=== PATIENT | female | born 1995 | race Caucasian/White ===

== ENCOUNTER 2020-09-03 20:44 | Emergency (ER) | payer MEDICAID, SELFPAY ==
--- NOTE | 2020-09-03 20:52 | XR_ITS ---
PROCEDURE: XR FOOT RT MIN 3V CLINICAL INDICATION: PAIN Pain in the right midfoot radiating into the heel COMPARISON: No exams were available for comparison FINDINGS: There is an old fracture versus accessory ossification center at the base of the 5th metatarsal. No other significant anomalies are evident. The joint spaces are well-preserved. No significant degenerative/arthritic changes. No erosive changes evident. Other findings:None. 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
--- NOTE | 2020-09-03 20:56 | HMH.EDUTC ---
[facility] Disposition Clinical Impression: Right foot pain Disposition: Home, Self-Care Condition on Discharge: Good Instructions: DI for Foot Pain Additional Instructions: Rest the extremity, , Elevate the extremity as tolerated while you are resting. Take ibuprofen for pain. I sent in a prescription to your pharmacy. Follow up with Dr. Oliveira (Podiatry). I put in a referral but you need to call his office and schedule an appointment. Follow up with your regular doctor. GO TO THE ER FOR ANY WORSENING SYMPTOMS Prescriptions: Ibuprofen [Ibuprofen 600mg Tablet] 600 mg PO Q6HP PRN #30 tab PRN Reason: Mild Pain Transmission Status: Pending to [id number] Referrals: PCP,Stella [Primary Care Provider] - Alexia Oliveira DPM [Staff Physician] - Forms: Work/School Release Time of Disposition: 21:05 Medical Decision Making - Medical Records Medical records reviewed: No: I reviewed the patient's medical records. - Tristan Inquiry Pt receiving controlled substance: No Orders (Tests/Meds): ORDERS Category Date Time Status Foot XR right minimum 3 views [XR foot RT min 3V] Stat Exams 09/03/20 20:52 Ordered - Radiology Data #1 Image(s): Foot/Toes Image Reviewed: Yes I reviewed the patient's radiology image Preliminary Findings: No Fracture Seen [facility] HPI - General Stated complaint: r foot pain Time Seen by Provider: 09/03/20 20:56 - History of Present Illness Provider Complaint: She states that over the past 2 to 3 months she has been having right foot pain. 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 She denies any injury. She is not diabetic. - Related Data Previous Rx's Medication Instructions Recorded Ibuprofen [Ibuprofen 600mg 600 mg PO Q6HP PRN #30 tab 09/03/20 Tablet] Allergies Allergy/AdvReac Type Severity Reaction Status Date / Time No Known Allergies Allergy Verified 06/01/19 12:46 [facility] History - Hepatitis A Screen Attestation statement:: This patient has been screened for Hepatitis A risk factors. I have reviewed the patient's past medical history: Yes Medical History: Denies:: Cancer, Diabetes Mellitus Type 1, Diabetes Mellitus Type 2 (gestational only), MRSA Amputation: No Fractures: No - Social History Alcohol Intake: never Alcohol Intake Frequency:: a few times a month Occupational Status: employed Housing: house ROS Obtained: Yes All systems reviewed & no additional complaints - Constitutional Constitutional: Denies chills, Denies fever(s) - Musculoskeletal Musculoskeletal: Reports as per HPI - Integumentary/Breasts Skin/Breast: Denies redness, Denies rash, Denies wounds - Neurologic Neurologic: Denies tingling/numbness/burning sensations Physical Exam - General General appearance: alert, in no apparent distress - Head Head exam: atraumatic, normocephalic, normal inspection - Eye Eye exam: Present: normal appearance, PERRL, EOMI - ENT ENT exam: Present: normal exam, normal oropharynx, mucous membranes moist, TM's normal bilaterally, normal external ear exam - Neck Neck exam: Present: normal inspection, full ROM, trachea midline. Absent: meningismus, lymphadenopathy - Chest Chest inspection: Present: normal inspection, symmetric chest wall rise. Absent: tenderness - Respiratory Respiratory exam: Present: normal lung sounds bilaterally. Absent: respiratory distress - Cardiovascular Cardiovascular exam: Present: regular rate, normal rhythm. Absent: JVD - Abdominal Exam Abdominal exam: Present: soft, normal bowel sounds. Absent: distention, tenderness, guarding - Extremities Exam Extremities exam: Present: normal capillary refill. Absent: calf tenderness - Expanded Lower Extremity Exam Right Hip/Pelvis exam: Present: normal inspection Upper leg exam: Present: normal inspection Knee exam: Present: normal inspection Lower leg exam: Present: normal inspe
[2020-09-03 20:57] VITALS: BP 155/81; PULSE 100; RESP 14; TEMP 37.1; O2SAT 100; BMI 35.2
[2020-09-03 21:07] VITALS: BP 155/81; PULSE 100; RESP 14; TEMP 37.1; O2SAT 100
== END 2020-09-03 21:10 | disposition home or self-care (01) ==
PROVIDERS: Emergency Provider Nurse Practitioner Family
DX: M79.671 Pain in right foot (principal)
CPT/HCPCS: 73630; 99201

== ENCOUNTER 2022-02-14 11:47 | Emergency (ER) | payer OTHER, SELFPAY ==
[2022-02-14] VITALS (10 sets, daily range): BP systolic 98–134; BP diastolic 48–79; PULSE 84–102; RESP 17–18; TEMP 36.8–37.1; O2SAT 99–100; BMI 37.8
[2022-02-14 12:10] LABS: Microscopic, Urine URINE MICROSCOPIC (MICROSCOPIC)
[2022-02-14 12:13] LABS: Appearance,Urine CLEAR (Clear); Bilirubin,Urine Negative (Negative); Blood, Urine TRACE-I (Negative); Color,Urine YELLOW (Yellow); Glucose,Urine (UA) Negative (Negative); Ketones,Urine Negative (Negative); Leukocyte Esterase,Urine 1+ (Negative); Nitrate,Urine Negative (Negative); PH,Urine 7.5 (5.0-8.5); Protein,Urine Negative (Negative); Specific Gravity, Urine 1.015 (1.005-1.030)
[2022-02-14 12:15] LABS: Urine Pregnancy, HCG Qual. Negative (Negative)
--- NOTE | 2022-02-14 12:25 | CT_ITS ---
PROCEDURE INFORMATION: Exam: CT Abdomen And Pelvis Without Contrast Exam date and time: 02/14/2022 2:23 PM Age: 26 years old Clinical indication: Nausea; Additional info: Abd pain- sudden onset lower abd pain- had previous ablation and was told had an ovarian cyst -- TECHNIQUE: Imaging protocol: Computed tomography of the abdomen and pelvis without contrast. Radiation optimization: All CT scans at this facility use at least one of these dose optimization techniques: automated exposure control; mA and/or kV adjustment per patient size (includes targeted exams where dose is matched to clinical indication); or iterative reconstruction. Other contrast: Oral, gastrograffin, 30ml; COMPARISON: ABDPELW/O CT ABD PELVIS W/O CONTRAST 04/10/2016 1:51 AM FINDINGS: Liver: Mild changes of hepatic steatosis. Gallbladder and bile ducts: Normal. No calcified stones. No ductal dilation. Pancreas: Normal. No ductal dilation. Spleen: Normal. No splenomegaly. Adrenal glands: Normal. No mass. Kidneys and ureters: Normal. No hydronephrosis. Stomach and bowel: Unremarkable. No obstruction. No mucosal thickening. Appendix: No evidence of appendicitis. Intraperitoneal space: Unremarkable. No free air. No significant fluid collection. Vasculature: Unremarkable. No abdominal aortic aneurysm. Lymph nodes: Unremarkable. No enlarged lymph nodes. Urinary bladder: Unremarkable as visualized. Reproductive: Anteverted uterus. Demonstration of 3.3 cm left ovarian cyst. The multiple cystic collections in the region of the lower uterine segment. Findings most likely correspond to nabothian cysts. Findings new. Bones/joints: Unremarkable. No acute fracture. Soft tissues: Unremarkable. Other findings: Evidence of previous granulomatous disease IMPRESSION: 1. Demonstration of 3.3 cm left ovarian cyst. 2. The multiple cystic collections in the region of the lower uterine segment. Findings most likely correspond to nabothian cysts. These are new compared with the previous study.
[2022-02-14 12:27] LABS: Bacteria,Urine Trace /lpf; RBC,Urine Occasional #/hpf (0-3); Squamous Epithelial Cell,Urine Occasional #/hpf (0-5)
--- NOTE | 2022-02-14 12:29 | HMH.EDGENADL ---
ED Disposition Clinical Impression: Pelvic pain Ovarian cyst Qualifiers: Laterality: left Qualified Code(s): N83.202 - Unspecified ovarian cyst, left side Disposition: Home, Self-Care Condition on Discharge: Good Instructions: DI for Acute Abdominal Pain, DI for Ovarian Cyst Additional Instructions: Follow-up with your [facility] for ovarian cyst as scheduled. Toradol as needed for pain. Prescriptions: Ketorolac Tromethamine [Toradol 10mg tablet] 10 mg PO Q6HP PRN #10 tab PRN Reason: Moderate Pain Transmission Status: Pending to [facility] #[id number] Referrals: Maria Esther Kimball APRN [Primary Care Provider] - - Critical Care Critical Care Time: No Attestation: On 02/14/22, the high probability of a clinically significant, sudden or life threatening deterioration of the following system(s) required my full and direct attention, intervention and personal management. The time I documented below is in addition to time spent performing reported procedures but includes the following listed in this critical care notation. Medical Decision Making - Tristan Inquiry Pt receiving controlled substance: No Vital Signs: 02/14/22 12:06 02/14/22 12:42 02/14/22 13:01 Temperature 98.7 F Temperature Source Oral Pulse Rate 99 H 93 H Pulse Rate [Left Radial] 94 H Respiratory Rate 17 Blood Pressure 121/79 118/50 L Blood Pressure [Right Arm] 134/61 Blood Pressure Mean 92 73 Blood Pressure Mean [Right Arm] 85 02 Sat by Pulse Oximetry 100 100 100 Oxygen Delivery Method Room Air 02/14/22 13:26 02/14/22 13:31 02/14/22 13:44 Temperature Temperature Source Pulse Rate 85 88 99 H Pulse Rate [Left Radial] Respiratory Rate Blood Pressure 128/57 L 124/49 L 98/48 L Blood Pressure [Right Arm] Blood Pressure Mean 76 74 65 Blood Pressure Mean [Right Arm] 02 Sat by Pulse Oximetry 99 100 100 Oxygen Delivery Method 02/14/22 14:00 02/14/22 15:24 02/14/22 15:30 Temperature Temperature Source Pulse Rate 102 H 102 H 87 Pulse Rate [Left Radial] Respiratory Rate Blood Pressure 110/50 L 113/63 104/48 L Blood Pressure [Right Arm] Blood Pressure Mean 70 78 67 Blood Pressure Mean [Right Arm] 02 Sat by Pulse Oximetry 100 100 100 Oxygen Delivery Method - Lab Data Lab Results 02/14/22 11:55: Urine Color Yellow, Urine Appearance Clear, Urine pH 7.5, Ur Specific [place] 1.015, Urine Protein Negative, Urine Glucose (UA) Negative, Urine Ketones Negative, Urine Blood Trace-i, Urine Nitrate Negative, Urine Bilirubin Negative, Urine Urobilinogen 1.0, Ur Leukocyte Esterase 1+ A, Urine RBC Occasional, Urine WBC 3-5, Ur Squamous Epith Cells Occasional, Urine Bacteria Trace 02/14/22 11:55: Urine HCG, Qual Negative 02/14/22 12:36: WBC 14.9 H, RBC 4.72, Hgb 14.3, Hct 41.4, MCV 87.6, MCH 30.2, MCHC 34.5, RDW 14.3, Plt Count 274, MPV 8.1, Neut % (Auto) 86.2 H, Lymph % (Auto) 9.0 L, [place] % (Auto) 2.6, Eos % (Auto) 1.3, Baso % (Auto) 0.9, Neut # (Auto) 12.8 H, Lymph # (Auto) 1.3, [place] # (Auto) 0.4, Eos # (Auto) 0.2, Baso # (Auto) 0.1, Total Counted 100, Neutrophils % (Manual) 86 H, Lymphocytes % (Manual) 13, Monocytes % (Manual) 1 L, Platelet Estimate Normal, RBC Morphology Normal 02/14/22 12:36: Sodium 137, Potassium 3.8, Chloride 105, Carbon Dioxide 27, Anion Gap 8.8, BUN 10, Creatinine 0.70, Estimated Creat Clear 168, Estimated GFR 100, Est GFR ( Amer) 121, Glucose 113 H, Calcium 8.9, Total Bilirubin 0.5, AST 39 H, ALT 35, Alkaline Phosphatase 94, Total Protein 7.3, Albumin 4.2, Globulin 3.1, Albumin/Globulin Ratio 1.4, Lipase 62 Result diagrams: 02/14/22 12:36 02/14/22 12:36 Orders (Tests/Meds): ED MEDICATIONS Discontinued Medications Generic Name Dose Route Start Last Admin Trade Name Freq PRN Reason Stop Dose Admin Morphine Sulfate 4 mg 02/14/22 13:15 02/14/22 13:20 Morphine 4mg/Ml Syringe IV 02/14/22 13:16 4 mg ONCE ONE Administration Onmatthewe
--- NOTE | 2022-02-14 12:31 | HMH.ITSTN ---
called and spoke to [facility]-- Dr. Topete was not available to consult on IV contrast-- we are currently on IV contrast shortage-- I need to clarify if patient needs oral contrast only or if he truly wants the IV contrast- they are suppose to check with him and call me back
[2022-02-14 12:46] LABS: Basophils # 0.1 K/mm3 (0-0.2); Basophils % 0.9 % (0.1-2.0); Eosinophils # 0.2 K/mm3 (0.0-0.4); Eosinophils % 1.3 % (0.1-12.0); Hematocrit 41.4 % (37.0-47.0); Hemoglobin 14.3 g/dL (12.2-16.2); Lymphocytes # 1.3 K/mm3 (0.7-4.5); Mean Corpuscular HGB Conc 34.5 g/dL (31.8-35.4); Mean Corpuscular Hemoglobin 30.2 pg (27.0-31.2); Mean Corpuscular Volume 87.6 fl (81-99); Mean Platelet Volume 8.1 fl (7.4-10.4); Monocytes # 0.4 K/mm3 (0.1-1.0); Monocytes % 2.6 % (1.7-9.3); Neutrophils # 12.8 K/mm3 (1.8-7.8); Neutrophils % 86.2 % (37.0-80.0); Platelet Count 274 K/mm3 (142-424); Red Blood Count 4.72 M/mm3 (4.20-5.40); Red Cell Distribution Width 14.3 % (11.5-17.5); White Blood Count 14.9 K/mm3 (4.8-10.8)
[2022-02-14 12:50] LABS: MANUAL DIFFERENTIAL MANUAL DIFFERENTIAL (MANUAL DIFF)
[2022-02-14 12:55] LABS: Chloride 105 mmol/L (98-107); Potassium 3.8 mmoL/L (3.5-5.1); Sodium 137 mmol/L (136-145)
[2022-02-14 12:57] LABS: Alanine Aminotransferase 35 U/L (12-78); Alkaline Phosphatase 94 U/L (38-126); Aspartate Amino Transferase 39 U/L (14-36); Bilirubin,Total 0.5 mg/dl (0.2-1.3); Blood Urea Nitrogen 10 mg/dl (7-17); Creatinine Clearance Estimated 168 mL/min (50-200); Estimated Glomerular Filt Rate 100 ml/min (>60); GFR (African American) 121 ML/MIN (>60)
[2022-02-14 12:58] LABS: Albumin Level 4.2 g/dl (3.5-5.0); Albumin/Globulin Ratio 1.4 (1.1-1.8); Anion Gap 8.8 mEq/L (5-15); Calcium 8.9 mg/dl (8.4-10.2); Carbon Dioxide 27 mmol/L (22.0-30.0); Globulin 3.1 g/dL (1.3-3.2); Glucose 113 mg/dl (74-100); Lipase 62 U/L (23-300); Total Protein,Serum 7.3 g/dl (6.3-8.2)
--- NOTE | 2022-02-14 13:06 | PC.NURSE ---
notified RAD Pt was finished with oral contrast 1302
--- NOTE | 2022-02-14 13:52 | PC.NURSE ---
pt resting in bed drowsy after meds
--- NOTE | 2022-02-14 15:18 | US_ITS ---
PROCEDURE INFORMATION: Exam: US Pelvis, Transvaginal Exam date and time: 02/14/2022 4:00 PM Age: 26 years old Clinical indication: Abnormal findings; Abnormal imaging test; Prior surgery; Surgery date: 1-6 months; Surgery type: Ablation x 2 mos; Additional info: Pelvic pain, ovarian cyst, R/O torsion TECHNIQUE: Imaging protocol: Real-time transvaginal pelvic ultrasound with image documentation. Transvaginal imaging was used for better evaluation of the endometrium, adnexa, and/or cervix. COMPARISON: CT ABDOMEN PELVIS WO CON 02/14/2022 2:23 PM FINDINGS: Uterus: The uterus measured 10.3 cm in length by 4.8 cm in AP dimensions by 5.8 cm transversely. The endometrial complex measured 1.2 cm patient's LMP 02/13/2022. Cervix: Multiple nabothian cysts are demonstrated in the region of the lower uterine segment. This corresponds to findings on the CT examination. Right ovary/adnexa: Right ovary measured 2.3 cm in length by 2 cm in AP dimensions by 2.4 cm in transverse dimensions. Left ovary/adnexa: The left ovary measured 4.3 cm in length by 4 cm in AP dimensions by 4.3 cm transversely. There is a 3.3 cm left ovarian cyst. No abnormal associated vascularity is demonstrated. This correlates with findings on the CT examination earlier on this date. Intraperitoneal space: No free fluid. IMPRESSION: 1. 3.3 cm left ovarian cyst. Findings correlate with CT findings earlier on this date. 2. Multiple nabothian cyst demonstrated in the region of the lower uterine segment. 3. Prominence of the endometrial complex. Clinically correlate
--- NOTE | 2022-02-14 15:19 | PC.NURSE ---
notified radiology of u/s order.
[2022-02-14 15:23] LABS: Lymphocytes % 13 % (10-50); Monocytes % 1 % (2-9); Neutrophils % 86 % (42-76); Platelet Estimate Normal; RBC Morphology Normal; Total Cells Counted 100
--- NOTE | 2022-02-14 15:32 | HMH.ITSTN ---
called in Tank Worker Fidelia at 3:30pm - she will be in
--- NOTE | 2022-02-14 16:47 | PC.NURSE ---
pt in room resting in bed
[2022-02-16 22:37] LABS: Neisseria gonorrhoeae, NAA Negative (Negative)
== END 2022-02-14 17:16 | disposition home or self-care (01) ==
PROVIDERS: Emergency Provider Emergency Medicine; PCP Nurse Practitioner Family
DX: N83.202 Unspecified ovarian cyst, left side (principal); Z88.8 Allergy status to other drugs, medicaments and biological substances
CPT/HCPCS: 74176; 76830; 80053; 81001; 81025; 83690; 85007; 85025; 87086; 87491; 87591; 96374; 96375; 99284; J2405

== ENCOUNTER 2023-08-15 18:54 | Emergency (ER) | payer OTHER, SELFPAY ==
--- OUTSIDE RECORDS SUMMARY | 2023-08-15 18:58 | XMS_ITS | Patient Health Record ---
Author Name Unknown Organization [facility] Address [address] [place] [address] Care Team Providers Care Iron Miner Name Role Phone Maria Esther Kimball Primary Care Provider [phone] MARIA ESTHER KIMBALL Unavailable Unavaila ble ALLERGIES No Known Allergies REASON FOR REFERRAL No Information MEDICATIONS Medication SIG (Take, Route, Frequency, Duration) Notes Start Date End Date Status Medrol 4 mg as directed orally a s directed for 6 days 02/11/2022 Active cetirizine 10 mg 1 tab(s) orally once a day for 30 days 02/04/2022 Active triamcinolone topical 0.1% 1 dequan applied topically 3 times a day as needed for hives for 7 day(s) 02/04/2022 Active SOCIAL HISTORY Tobacco Use: Social History Observation Description Date Details (start date - stop date) Never Smoker NA - NA Sex Assigned At : Social History Observation Description Sex Assigned At Unknown Smoking: Question Answer Notes Are you a: nonsmoker PROBLEMS Problem Type ICD Code Onset Dates Problem Status W/U Status Risk SNOMED Code Notes Problem Family history of diabetes mellitus (Z83.3) Active confirmed 433935068 Problem BMI 38.0-38.9,adul t (Z68.38) Active confirmed [id number]
--- OUTSIDE RECORDS SUMMARY | 2023-08-15 18:58 | XMS_ITS | Patient Health Record ---
Author Name Unknown Organization [facility] [place] Address [address] [place] [address] Care Team Providers Care Licensed Guide Name Role Phone Lorelei Burk Unavailable [phone] Allergies No Known Allergies Reason For Referral No Information Medications Medication SIG (Take, Route, Fr equency, Duration) Notes Start Date End Date Status Ibuprofen 600 MG One tablet po every every 6 hours for 5 days 01/01/2022 Not-Taking Lovenox 40 MG/0.4ML 0.4 ml Subcutaneous Once a day for 30 day(s) 01/01/2022 Active Percocet 5-325 MG one tablet po every 4 hours for 3 days 01/01/2022 Not-Taking Social History Alcohol Screen Question Answer Notes Did you have a drink containing alcohol in the p ast year? No Points 0 Interpretation Negative Problems Problem Type SNOMED Code ICD Code Onset Dates Problem Status W/U Status Risk Notes Problem [id number] Menorrhagia with regular cycle (N92.0) Active confirmed Problem [id number] Menorrhagia with irregular cycle (N92.1) Active confirmed Problem Gynecological examination abnormal ([id number] ) *Line Technician exam with abnormal finding (Code also - abnormal finding(s) (Z01.411) 021 Active confirmed
[2023-08-15 20:25] VITALS: BP 139/71; PULSE 83; RESP 17; TEMP 36.7; O2SAT 98; BMI 31.3
[2023-08-15 20:48] LABS: Apearance,Urine Cloudy (Clear); Blood, Urine 3+ (Negative); Color,Urine Red (Yellow); Glucose,Urine (UA) 100 (Negative); Ketones,Urine Negative (Negative); Protein,Urine 1+ (Negative)
[2023-08-15 20:49] VITALS: BP 139/71; PULSE 83; RESP 17; TEMP 36.7; O2SAT 98
[2023-08-15 20:49] LABS: Bilirubin,Urine 1+ (Negative); UTC Leukocyte Esterase,Urine 3+ (Negative); UTC Nitrate,Urine Positive (Negative); Urobilinogen,Urine 2 EU/dl (0.2)
--- NOTE | 2023-08-15 20:51 | EXP.UTC ---
Discharge Plan Disposition Patient Disposition: Home, Self-Care Condition: Good Prescriptions Prescriptions: New cefdinir 300 mg capsule 300 mg PO BID 10 Days Qty: 20 0RF phenazopyridine [Pyridium] 200 mg tablet 200 mg PO Q8H 2 Days Qty: 6 0RF No Action ketorolac 10 MG tablet 10 mg PO Q6HP PRN (Reason: Moderate Pain) Qty: 10 0RF Referrals Follow up/Referrals: Maria Esther Kimball APRN [Primary Care Provider] - See instructions Activity Restrictions/Add. Instructions Additional Instructions/Restrictions: *Increase fluids. Water not Soda or Tea *Start antibiotic immediately and be sure to take as ordered for the FULL length of time although you should start to see improvement over the next 48 hours *Pyridium as needed Remember this medication will turn your urine . This is normal but it will stain what ever it gets on *You should not use Pyridium for more than 48 hours. If so , follow up with your primary physician to review urine culture and ensure that antibiotic is adequate for infection *Be SURE to follow up anytime for new or worsening symptoms with your family doctor. AND in 48 hours for urine culture results with your family doctor, if you do not have a doctor then you may call back to the [facility] for urine culture results and further treatment. We do recommend that you choose and establish care with a Primary Care Physician. ?AND follow up with them ?in 10-14 days to repeat UA to ensure infection is resolved and blood no longer present *Be sure to let your PCP know that we sent urine cultures from the [facility] so they can follow up to ensure that you area the on the correct antibiotic Call your doctor office and make appointment for 48 hours (2 days from today) ?to follow up and get the results of your urine culture and further treatment Follow up immediately if any worsening of symptoms Clinical Impressions Clinical Impression: UTI (urinary tract infection) Qualifiers: Urinary tract infection type: site unspecified Hematuria presence: with hematuria Qualified Code(s): N39.0 - Urinary tract infection, site not specified Instructions Patient Instructions: Urinary Tract Infection, DI for Urinary Tract Infection (UTI), Cefdinir Discharge ED Provider: Benita Pendleton [facility] HPI General Stated complaint: painful urination, blood in urine Mode of Arrival: Ambulatory Source of Information: Patient Limitations: No Limitations Time Seen by Provider: 08/15/23 20:51 Description of Symptoms (Recalled from Triage Doc. by RN): PATIENT C/O PAIN AND DISCOMFORT WITH URINATION AND BLOOD IN URINE SINCE YESTERDAY HEENT Symptoms (Recalled from RN notes): No Resp Symptoms (Recalled from RN notes): No Skin Symptoms (Recalled from RN notes): No MS Symptoms (Recalled from RN notes): No Functional Status (Recalled from RN notes): WNL History of Present Illness Provider Complaint: Patient states that yesterday she started with burning and discomfort with urination so she started taking AZO States that this morning she noticed some blood in her urine and has continued to have burning, urgency and frequency and pressure like feeling in her lower abdomen States that she hasnt had any fever body aches or chills and feels like she is going all the time Denies hx of kidney stones and denies lower back pain or flank pain Related Data Previous Rx's Medication Instructions Recorded ketorolac 10 mg tablet 10 mg PO Q6HP PRN Moderate Pain 02/14/22 #10 tabs cefdinir 300 mg capsule 300 mg PO BID 10 days #20 caps 08/15/23 phenazopyridine 200 mg tablet 200 mg PO Q8H pain 2 days #6 tabs 08/15/23 (Pyridium) Allergies Allergy/AdvReac Type Severity Reaction Status Date / Time enoxaparin [From Lovenox] Allergy Verified 02/14/22 12:21 Worker's Comp Is this a Worker's Comp case?: No [facility] Disclaimer: The information contained in this section may have been updated after the patient was seen, as this information can be updated b
== END 2023-08-15 21:18 | disposition home or self-care (01) ==
PROVIDERS: Emergency Provider Nurse Practitioner; PCP Nurse Practitioner Family
DX: N39.0 Urinary tract infection, site not specified (principal); B95.7 Other staphylococcus as the cause of diseases classified elsewhere; R31.9 Hematuria, unspecified; R10.30 Lower abdominal pain, unspecified
CPT/HCPCS: 81003; 87086; 96372; 99212; 99214; G0463; J0696

== ENCOUNTER 2024-11-21 16:16 | Emergency (ER) | payer OTHER, SELFPAY ==
[2024-11-21 16:19] VITALS: BP 134/81; PULSE 82; RESP 16; TEMP 36.7; O2SAT 100; BMI 35.2
--- NOTE | 2024-11-21 16:48 | CA_ITS ---
FINAL REPORT TECHNIQUE: Compression delgadillo scale and Doppler evaluation CLINICAL HISTORY: left foot and ankle pain, denies trauma. History of DVT and PE's post 8 years ago. Not currently on blood thinners. FINDINGS: Femoral and popliteal veins show normal compressibility and flow. Visualized portion of the calf veins are patent by Doppler exam. IMPRESSION: No evidence of left lower extremity deep venous thrombosis Reviewed, Interpreted and Dictated by Bakari Heredia MD Transcribed by Flori Mccullough Authenticated and [facility]
--- NOTE | 2024-11-21 16:50 | XR_ITS ---
PROCEDURE INFORMATION: Exam: XR Left Foot Exam date and time: 11/21/2024 5:01 PM Age: 29 years old Clinical indication: Pain; Foot; Left; Additional info: Left foot pain, swelling TECHNIQUE: Imaging protocol: Radiologic exam of the left foot. Views: 3 or more views. COMPARISON: CR XR FOOT LT MIN 3V 11/21/2024 5:01 PM FINDINGS: Bones/joints: Ununited fracture at the base of the 5th metatarsal noted. No acute fracture identified. No other significant bone or joint abnormality. Small heel spurs. Soft tissues: Normal. 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 No acute abnormality.
--- NOTE | 2024-11-21 16:51 | XR_ITS ---
PROCEDURE INFORMATION: Exam: XR Left Ankle Exam date and time: 11/21/2024 5:03 PM Age: 29 years old Clinical indication: Pain; Ankle; Left; Additional info: Foot pain ankle pain and swelling TECHNIQUE: Imaging protocol: Radiologic exam of the left ankle. Views: 1 or 2 views. COMPARISON: CR XR FOOT LT MIN 3V 11/21/2024 5:01 PM FINDINGS: Bones/joints: Normal. No acute fracture identified. Soft tissues: Normal. IMPRESSION: No acute findings.
--- NOTE | 2024-11-21 16:52 | PC.NURSE ---
PT IN A GOWN FOR DOPPLER
--- NOTE | 2024-11-21 16:58 | HMH.EDGENADL ---
Discharge Plan Disposition Patient Disposition: Home, Self-Care Condition: Good Prescriptions Prescriptions: No Action ketorolac 10 MG tablet 10 mg PO Q6HP PRN (Reason: Moderate Pain) Qty: 10 0RF cefdinir 300 mg capsule 300 mg PO BID 10 Days Qty: 20 0RF phenazopyridine [Pyridium] 200 mg tablet 200 mg PO Q8H 2 Days Qty: 6 0RF Referrals Follow up/Referrals: Maria Esther Kimball APRN [Primary Care Provider] - See instructions Alexia Oliveira DPM [Staff Physician] - See instructions (Left foot injury) Clinical Impressions Clinical Impression: Injury of left foot, Fracture of 5th metatarsal Instructions Patient Instructions: DI for Foot Pain Print Language Print Language: Amharic Discharge ED Provider: Marek Blanco General Adult HPI <JORGE ALBERTO Stein - Last Filed: 11/21/24 17:59> General Chief complaint: PAIN Stated complaint: left foot pain and swollen Time Seen by Provider: 11/21/24 16:29 Mode of Arrival: Ambulatory Source of Information: Patient Limitations: No Limitations Description of Symptoms (Recalled from ER Triage Doc. by RN): PT C/O SWELLING TO LEFT FOOT AND PAIN TO HER FOOT THAT STARTED YESTERDAY, NO INJURY PT ALSO HAS AN ITCHY RASH ON HER CHEST History of Present Illness HPI narrative: 29-year-old female presents emergency department with left foot pain and swelling, patient noticed this pain and swelling last night, no trauma or injury per history, patient denies any other acute symptomatology to include fever chills chest pain shortness of breath no nausea no vomiting no constipation no diarrhea, has any upper or lower extremity weakness, denies numbness tingling back pain or radicular type symptomatology. Patient with a past medical history consistent with uterine ablation, prior pulmonary embolism after , not on anticoagulants currently. No long car rides, no recent travel, no sick contacts, otherwise no other acute symptomatology or no real relevant past medical history and distress vitals unremarkable. History of substance abuse. Not currently on OCPs. She does endorse also a itchy rash , on her chest, but this has been present for quite some time. Related Data Previous Rx's ?Medication ?Instructions ?Recorded ketorolac 10 mg tablet 10 mg PO Q6HP PRN Moderate Pain 02/14/22 #10 tabs cefdinir 300 mg capsule 300 mg PO BID 10 days #20 caps 08/15/23 phenazopyridine 200 mg tablet 200 mg PO Q8H pain 2 days #6 tabs 08/15/23 (Pyridium) Allergies Allergy/AdvReac Type Severity Reaction Status Date / Time enoxaparin (From Lovenox) Allergy Verified 02/14/22 12:21 PFSH <JORGE ALBERTO Stein - Last Filed: 11/21/24 17:59> PFS Disclaimer: The information contained in this section may have been updated after the patient was seen, as this information can be updated by other users. Medical History (Updated 11/21/24 @ 19:24 by Marek Blanco MD) Urinary tract infection Pulmonary embolism Surgical History (Updated 08/15/23 @ 20:33 by Sary Meng RN) History of section Social History (Updated 08/15/23 @ 21:16 by Benita Pendleton APRN) Smoking Status: Never smoker second hand exposure: No alcohol intake: never current occupational status: employed Travel in the last 8 weeks: None housing: house Have you lived/traveled outside [place] in past 30 days?: No Contact w/someone who lives/traveled outside [place] past 30 days?: No Exposure to someone with infectious disease in past 14 days?: No Do you have a fever (greater than 100.4 F or 38 C)?: No Have you tested positive for COVID-19: No Exposed to someone with COVID-19 in past 14 days?: No Do you have a sore throat?: No Do you have a cough?: No Do you have any weakness?: No Do you have any diarrhea?: No Are you experiencing any unusual bleeding?: No Do you have any muscle aches/pain?: No Do you have any abdominal pain?: No Are you experiencing loss of taste or smell?: No Other Medical History Have you received the Flu Vaccine for this season: Yes Have you received the Pneumonia Vaccine: No <JORGE ALBERTO Stein - Last Filed: 11/21/24 17:59> ROS Obtained: Yes All systems reviewed & no additional complaints except as documented Physical Exam <JORGE ALBERTO Stein - Last Filed: 11/21/24 17:59> General General appearance: alert and in no apparent distress Head Head exam: atraumatic and normocephalic Eye Eye exam: Present PERRL and EOMI ENT ENT exam: Present mucous membranes moist Neck Neck exam: Present normal inspection Chest Chest inspection: Present normal inspection and symmetric chest wall rise Respiratory Respiratory exam: Present normal lung sounds bilaterally; Absent respiratory distress Cardiovascular Cardiovascular exam: Present regular rate and normal rhythm Abdominal Exam Abdominal exam: Present soft; Absent tenderness Extremities Exam Extremities exam: Present normal inspection, full ROM, tenderness and other (Mild tenderness to palpation to the dorsal aspect of the left foot, minimal soft tissue swelling is noted, negative Homans' sign, no pain to palpation of the tib-fib region or calf region. Otherwise neurovascular intact.) Neurological Exam Neurological exam: Present alert and oriented X3 Psychiatric Psychiatric exam: Present normal affect Skin Skin exam: Present warm and dry Medical Decision Making <JORGE ALBERTO Stein - Last Filed: 11/21/24 17:59> Medical Records Medical records reviewed: Yes I reviewed the patient's medical records. Screening: Per USPSTF and CDC recommendations, given the prevalence of disease in our region, it is our hospital?s policy to screen for HIV and viral Hepatitis for all patients aged 18 and over and those with ongoing risk factors. Tristan Inquiry Pt receiving controlled substance: No Tristan was queried for this patient: No Vital Signs: 11/21/24 16:19 11/21/24 18:11 Temperature 98.0 F 98.0 F Temperature Source Oral Oral Pulse Rate 82 Pulse Rate [Radial] 82 Respiratory Rate 16 16 Blood Pressure 134/81 Blood Pressure [Left Arm] 134/81 Blood Pressure Mean [Left Arm] 98 Blood Pressure Source Automatic Cuff Blood Pressure Source [Left Arm] Automatic Cuff Blood Pressure Position Sitting Blood Pressure Position [Left Arm] Sitting 02 Sat by Pulse Oximetry 100 Oxygen Delivery Method Room Air Room Air Orders (Tests/Meds): ORDERS Category Date Time Status XR ankle LT 2V Stat Exams 11/21/24 16:51 Completed XR foot LT min 3V Stat Exams 11/21/24 16:50 Completed CA venous doppler LE LT Stat Y 11/21/24 16:48 Completed Medical Decision Narrative: 29-year-old female presents the emergency department with left foot pain and swelling, differential diagnose, not limited to foot sprain/strain, ankle sprain/strain, foot fracture, ankle fracture, DVT. Discussed patient case with attending physician Dr. Blanco Will obtain duplex lower extremity ultrasound, and will obtain foot x-ray and ankle x-ray for further evaluation as characterization. Reviewed the patient's ankle x-ray, foot x-ray along the corresponding radiologic report, there is an ununited fifth metatarsal fracture, otherwise no acute abnormality in the patient's ankle. I along with the attending physician reviewed the patient's duplex ultrasound, negative left lower extremity duplex ultrasound, radiology/formal report is pending, however microbiological lab technician states that the patient's DVT ultrasound is negative per her examination. Discussed this with the patient, patient would like to be discharged home to self-care, state we will call the patient with positive findings on ultrasound. I discussed this patient's case with the on-call orthopedic doctor Dipak and reviewed the plain film x-rays with him at approximately 5:43 PM, he recommends walker boot, and follow-up in the orthopedic clinic. He believes this is more of a chronic appearing fracture. I discussed the results with the patient at the bedside recommend rest ice compression, ibuprofen or other anti-inflammatory medications for pain. Patient voiced understand agreement current treatment plan/discharge plan. Strict ED return precautions given. <Marek Blanco MD - Last Filed: 11/21/24 19:25> Vital Signs: 11/21/24 16:19 11/21/24 18:11 Temperature 98.0 F 98.0 F Temperature Source Oral Oral Pulse Rate 82 Pulse Rate [Radial] 82 Respiratory Rate 16 16 Blood Pressure 134/81 Blood Pressure [Left Arm] 134/81 Blood Pressure Mean [Left Arm] 98 Blood Pressure Source Automatic Cuff Blood Pressure Source [Left Arm] Automatic Cuff Blood Pressure Position Sitting Blood Pressure Position [Left Arm] Sitting 02 Sat by Pulse Oximetry 100 Oxygen Delivery Method Room Air Room Air Orders (Tests/Meds): ORDERS Category Date Time Status XR ankle LT 2V Stat Exams 11/21/24 16:51 Completed XR foot LT min 3V Stat Exams 11/21/24 16:50 Completed CA venous doppler LE LT Stat Y 11/21/24 16:48 Completed Medical Decision Narrative: 29-year-old female presents the emergency department with left foot pain and swelling, differential diagnose, not limited to foot sprain/strain, ankle sprain/strain, foot fracture, ankle fracture, DVT. Discussed patient case with attending physician Dr. Blanco Will obtain duplex lower extremity ultrasound, and will obtain foot x-ray and ankle x-ray for further evaluation as characterization. Reviewed the patient's ankle x-ray, foot x-ray along the corresponding radiologic report, there is an ununited fifth metatarsal fracture, otherwise no acute abnormality in the patient's ankle. I along with the attending physician reviewed the patient's duplex ultrasound, negative left lower extremity duplex ultrasound, radiology/formal report is pending, however microbiological lab technician states that the patient's DVT ultrasound is negative per her examination. Discussed this with the patient, patient would like to be discharged home to self-care, state we will call the patient with positive findings on ultrasound. I discussed this patient's case with the on-call orthopedic doctor Dipak and reviewed the plain film x-rays with him at approximately 5:43 PM, he recommends walker boot, and follow-up in the orthopedic clinic. He believes this is more of a chronic appearing fracture. I discussed the results with the patient at the bedside recommend rest ice compression, ibuprofen or other anti-inflammatory medications for pain. Patient voiced understand agreement current treatment plan/discharge plan. Strict ED return precautions given. I was consulted by the LORNA, and we discussed the complexity of the problems being addressed. I approved the treatment and management plan for this patient's care in the emergency department, thus performing a substantive portion of the medical decision making. Marek Blanco MD Critical Care <JORGE ALBERTO Stein - Last Filed: 11/21/24 17:59> Critical Care Time Critical Care Time: No
--- NOTE | 2024-11-21 17:33 | PC.NURSE ---
PT RETURNED FROM [facility]
[2024-11-21 18:11] VITALS: BP 134/81; PULSE 82; RESP 16; TEMP 36.7; O2SAT 100
== END 2024-11-21 18:11 | disposition home or self-care (01) ==
PROVIDERS: Emergency Provider Emergency Medicine; PCP Nurse Practitioner Family
DX: S92.302A Fracture of unspecified metatarsal bone(s), left foot, initial encounter for closed fracture (principal); X58.XXXA Exposure to other specified factors, initial encounter
CPT/HCPCS: 73600; 73630; 93971; 99284

== ENCOUNTER 2025-01-09 14:09 | Outpatient (CLI) | payer OTHER, SELFPAY ==
--- NOTE | 2025-01-09 14:13 | XR_ITS ---
FINAL REPORT CLINICAL HISTORY: Left 4th, 5th Metatarsal Fracture FINDINGS: LEFT FOOT Three views of the left foot demonstrate no acute fracture or dislocation. 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 The visualized joint spaces are normally aligned. The soft tissues are unremarkable. IMPRESSION: No acute bony abnormality. 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 Reviewed, Interpreted and Dictated by Bebe Esparza MD Transcribed by Rosio Schmitt Authenticated and [facility]
== END 2025-01-09 23:59 | disposition home or self-care (01) ==
LOC: RAD 14:10
PROVIDERS: PCP Nurse Practitioner Family; Visit Provider Podiatrist
DX: S92.902K Unspecified fracture of left foot, subsequent encounter for fracture with nonunion (principal)
CPT/HCPCS: 73630

== ENCOUNTER 2025-02-05 08:07 | Outpatient (CLI) | payer SELFPAY ==
--- NOTE | 2025-02-05 08:11 | XR_ITS ---
PROCEDURE INFORMATION: Exam: XR Left Foot Complete; Alignment Exam date and time: 02/05/2025 8:12 AM Age: 29 years old Clinical indication: Condition or disease; Other: 6 week post FX; Additional info: 4th and 5th FX TECHNIQUE: Imaging protocol: Radiologic exam of the left foot. Views: 3 or more views. COMPARISON: CR XR FOOT WT BEARING LT 3V 01/09/2025 2:30 PM FINDINGS: Bones/joints: Again noted is a chronic appearing fracture of the base of the 5th metatarsal with nonunion. Soft tissues: Normal. IMPRESSION: Again noted is a chronic appearing fracture of the base of the 5th metatarsal with nonunion.
== END 2025-02-05 23:59 | disposition home or self-care (01) ==
PROVIDERS: PCP Nurse Practitioner Family; Visit Provider Nurse Practitioner
DX: S92.352K Displaced fracture of fifth metatarsal bone, left foot, subsequent encounter for fracture with nonunion (principal)
CPT/HCPCS: 73630